=== PATIENT | female | born 1995 | race African-American/Black ===

== ENCOUNTER 2016-09-09 13:10 | Emergency (ER) | payer MEDICAID ==
[~2016-09-09] VITALS: Ht 152.4 cm; Wt 45.4 kg
[2016-09-09 14:34] VITALS: BP 135/87
== END 2016-09-09 14:52 | disposition home or self-care (01) ==
LOC: ER 13:12
DX: J02.9 Acute pharyngitis, unspecified (principal)

== ENCOUNTER 2018-04-02 10:40 | Emergency (ER) | payer MEDICAID, OTHER ==
[~2018-04-02] VITALS: Ht 152.4 cm; Wt 48.5 kg
[2018-04-02 11:22] VITALS: BP 106/70
[2018-04-02 11:46] LABS: Urine Bacteria NONE SEEN /hpf (None Seen); Urine Blood Negative /uL (Negative); Urine Mucus FEW (None Seen); Urine Sperm PRESENT /hpf (None Seen); Urine WBC 1 /hpf (0 - 5)
[2018-04-02] MEDS ORDERED: KETOROLAC TROMETH 60MG/2ML VIAL IM ONE (12:00)
[2018-04-02] MEDS ORDERED: LACTULOSE 20Gm/30ML SOLN PO ONE (13:00)
== END 2018-04-02 13:16 | disposition home or self-care (01) ==
LOC: ER 10:40
DX: K59.00 Constipation, unspecified (principal)
CPT/HCPCS: 76856; 81001; 81025; 96372; 99285; J1885

== ENCOUNTER 2018-06-27 22:48 | Emergency (ER) | payer MEDICAID ==
[~2018-06-27] VITALS: Ht 152.4 cm; Wt 50.3 kg
[2018-06-27 23:00] VITALS: BP 130/92
== END 2018-06-28 02:05 | disposition home or self-care (01) ==
LOC: ER 22:54
DX: J06.9 Acute upper respiratory infection, unspecified (principal); Z32.02 Encounter for pregnancy test, result negative
CPT/HCPCS: 36415; 84702

== ENCOUNTER 2020-04-28 22:59 | Emergency (ER) | payer MEDICAID ==
[~2020-04-28] VITALS: Ht 152.4 cm; Wt 56.2 kg
[2020-04-28 23:14] VITALS: BP 134/97
[2020-04-28] MEDS ORDERED: cefTRIAXone SOD 1,000 MG VL IM ONE (23:15)
== END 2020-04-28 23:29 | disposition home or self-care (01) ==
LOC: ER 22:59
DX: J02.9 Acute pharyngitis, unspecified (principal)
CPT/HCPCS: 96372; 99283; J0696

== ENCOUNTER 2020-05-03 18:38 | Emergency (ER) | payer MEDICAID ==
[~2020-05-03] VITALS: Ht 154.9 cm; Wt 58.1 kg
[2020-05-03 20:59] LABS: Urine Bacteria FEW /hpf (None Seen); Urine Blood Negative /uL (Negative); Urine Specific Gravity 1.011 (1.001-1.035); Urine WBC 1 /hpf (0 - 5)
[2020-05-03 21:00] LABS: Alcohol, Urine < 3.0 mg/dL (0-10); Amphetamine Screen, Urine NEGATIVE (NEGATIVE); Benzodiazephine Screen, Urine NEGATIVE (NEGATIVE); Cannabinoid Screen, Urine NEGATIVE (NEGATIVE); Cocaine Screen, Urine NEGATIVE (NEGATIVE); Opiate Scree,Urine NEGATIVE (NEGATIVE); Phencyclidine Screen, Urine NEGATIVE (NEGATIVE)
[2020-05-03 21:24] LABS: Barbiturate Scree,Urine NEGATIVE (NEGATIVE)
[2020-05-03] MEDS ORDERED: FLUCONAZOLE 100 MG TAB PO ONE (21:30)
[2020-05-03 21:58] VITALS: BP 136/75
== END 2020-05-03 22:08 | disposition home or self-care (01) ==
LOC: ER 18:38
DX: B37.3 Candidiasis of vulva and vagina (principal); N83.202 Unspecified ovarian cyst, left side
CPT/HCPCS: 36415; 76856; 80307; 81001; 84702

== ENCOUNTER 2022-04-13 20:42 | Emergency (ER) | payer MEDICAID, OTHER ==
[~2022-04-13] VITALS: Ht 152.4 cm; Wt 55.0 kg
[2022-04-13] MEDS ORDERED: amLODIPine BESYLATE 5 MG TAB ONE (22:12)
[2022-04-13] MEDS ORDERED: amLODIPine BESYLATE 5 MG TAB PO ONE (22:30)
[2022-04-13 23:20] VITALS: BP 166/103
[2022-04-14] MEDS ORDERED: KETOROLAC TROMETH 60MG/2ML VIAL IM ONE (00:15)
== END 2022-04-14 02:08 | disposition home or self-care (01) ==
LOC: ER 20:45
DX: S39.012A Strain of muscle, fascia and tendon of lower back, initial encounter (principal); R51.9 Headache, unspecified; I10 Essential (primary) hypertension; X50.1XXA Overexertion from prolonged static or awkward postures, initial encounter; Y93.89 Activity, other specified; Y92.89 Other specified places as the place of occurrence of the external cause; Y99.0 Civilian activity done for income or pay
CPT/HCPCS: 70450; 96372; 99284; J1885

== ENCOUNTER 2022-04-18 11:30 | Emergency (ER) | payer OTHER ==
[~2022-04-18] VITALS: Ht 152.4 cm; Wt 35.9 kg
[2022-04-18 11:45] VITALS: BP 149/91
[2022-04-18] MEDS ORDERED: LISINOPRIL 10 MG TAB PO ONE (13:45)
[2022-04-18] MEDS ORDERED: KETOROLAC TROMETH 60MG/2ML VIAL IM ONE (13:45)
[2022-04-18] MEDS ORDERED: METH500T22 PO (14:09)
[2022-04-18] MEDS ORDERED: IBUP600T27 PO (14:09)
[2022-04-18] MEDS ORDERED: LISI-716 PO (14:09)
== END 2022-04-18 14:25 | disposition home or self-care (01) ==
LOC: ER 11:30
DX: S39.012A Strain of muscle, fascia and tendon of lower back, initial encounter (principal); I10 Essential (primary) hypertension; Z76.0 Encounter for issue of repeat prescription; X50.1XXA Overexertion from prolonged static or awkward postures, initial encounter; Y93.89 Activity, other specified; Y92.89 Other specified places as the place of occurrence of the external cause; Y99.8 Other external cause status
CPT/HCPCS: 96372; 99283; J1885

== ENCOUNTER 2022-08-29 11:50 | Emergency (ER) | payer MEDICAID, OTHER ==
[~2022-08-29] VITALS: Ht 160 cm; Wt 55.0 kg
[~2022-08-29 11:50] MED LIST: IBUP600T27 PO; LISI-716 PO; METH500T22 PO
[2022-08-29 12:41] VITALS: BP 158/98
[2022-08-29 13:19] LABS: Basophils # (auto) 0 10 ^3/uL (0-0.2); Basophils % (auto) 0.3 % (0.0-2.0); Eosinophils # (auto) 0.1 10 ^3/uL (0-0.8); Eosinophils % (auto) 1.1 % (0.0-7.0); Hematocrit 40.3 % (36.0-46.0); Hemoglobin 13.6 g/dL (12.2-16.2); Lymphocytes % (auto) 36.5 % (10.0-50.0); Mean Corpuscular Hemoglobin 30.1 pg (28.0-32.0); Mean Corpuscular Hgb Conc. 33.6 g/dL (32.0-36.0); Mean Corpuscular Volume 89.6 fL (80.0-100.0); Monocytes # (auto) 0.4 10 ^3/uL (0-1.3); Neutrophils # (auto) 3.1 10 ^3/uL (1.6-8.6); Neutrophils % (auto) 55.1 % (37.0-80.0); Nucleated Red Blood Cells % 0.1 %; Red Cell Distribution Width 13.2 % (11.8-14.3); White Blood Cell 5.6 10^3/uL (4.4-10.8)
[2022-08-29 13:56] LABS: Urine Bacteria NONE SEEN /hpf (None Seen); Urine Blood 3+ /uL (Negative); Urine Specific Gravity 1.018 (1.001-1.035); Urine WBC 100 /hpf (0 - 5)
[2022-08-29] MEDS ORDERED: cefTRIAXone SOD 1,000 MG VL IM ONE (14:15)
[2022-08-29] MEDS ORDERED: NAPR500T31 PO (14:52)
== END 2022-08-29 14:50 | disposition home or self-care (01) ==
LOC: ER 11:50
DX: N39.0 Urinary tract infection, site not specified (principal); N92.0 Excessive and frequent menstruation with regular cycle; I10 Essential (primary) hypertension; Z20.2 Contact with and (suspected) exposure to infections with a predominantly sexual mode of transmission; Z32.02 Encounter for pregnancy test, result negative
CPT/HCPCS: 36415; 76830; 76856; 81001; 81025; 85025; 87210; 87491; 87591; 96372; 99284; J0696

== ENCOUNTER 2022-10-03 10:59 | Emergency (ER) | payer MEDICAID ==
[~2022-10-03] VITALS: Ht 152.4 cm; Wt 55.0 kg
[~2022-10-03 10:59] MED LIST changes: +NAPR500T31 PO
[2022-10-03 11:10] VITALS: BP 172/117
[2022-10-03] MEDS ORDERED: cloNIDine HCL 0.1 MG TAB PO ONE (11:15)
[2022-10-03] MEDS ORDERED: ASPirin 81 mg TAB PO ONE (11:15)
[2022-10-03] MEDS ORDERED: cloNIDine HCL 0.1 MG TAB ONE (11:15)
[2022-10-03 11:33] LABS: Basophils # (auto) 0 10 ^3/uL (0-0.2); Basophils % (auto) 0.5 % (0.0-2.0); Eosinophils # (auto) 0 10 ^3/uL (0-0.8); Eosinophils % (auto) 0.2 % (0.0-7.0); Hematocrit 46.3 % (36.0-46.0); Hemoglobin 15.4 g/dL (12.2-16.2); Lymphocytes # (auto) 2.2 10 ^3/uL (0.4-5.4); Mean Corpuscular Hemoglobin 29.7 pg (28.0-32.0); Mean Corpuscular Hgb Conc. 33.2 g/dL (32.0-36.0); Mean Corpuscular Volume 89.6 fL (80.0-100.0); Monocytes # (auto) 0.6 10 ^3/uL (0-1.3); Monocytes % (auto) 7.7 % (0.0-12.0); Neutrophils # (auto) 5.5 10 ^3/uL (1.6-8.6); Neutrophils % (auto) 65.6 % (37.0-80.0); Nucleated Red Blood Cells % 0.1 %; Red Blood Cells 5.17 10^6/uL (4.0-5.20); Red Cell Distribution Width 13.1 % (11.8-14.3); White Blood Cell 8.3 10^3/uL (4.4-10.8)
[2022-10-03 11:50] LABS: Albumin 4.1 g/dL (3.4-5.0); Calcium 9.2 mg/dL (8.5-10.1); Potassium 5.1 mmol/L (3.5-5.1)
[2022-10-03 11:53] LABS: BUN/Creatinine Ratio 12.3; Bilirubin, Total 0.7 mg/dL (0.2-1.0); Total Protein 7.4 g/dL (6.4-8.2)
[2022-10-03] MEDS ORDERED: LOSA25TA38 PO (12:48)
== END 2022-10-03 14:52 | disposition home or self-care (01) ==
LOC: ER 10:59
DX: R07.89 Other chest pain (principal); I16.0 Hypertensive urgency; Z79.1 Long term (current) use of non-steroidal anti-inflammatories (NSAID); Z79.899 Other long term (current) drug therapy
CPT/HCPCS: 36415; 71046; 80053; 84484; 85025; 93005